=== PATIENT | female | born 1985 | race Caucasian/White ===

== ENCOUNTER 2018-09-23 15:51 | Inpatient (IN) | payer BC, OTHER ==
[~2018-09-23] VITALS: Ht 167.6 cm; Wt 106.0 kg
[2018-09-23] MEDS ORDERED: SODIUM CHLORIDE 0.9% 1,000 ML IV ONE ×2 (16:56→18:00)
[2018-09-23] MEDS ORDERED: SODIUM CHLORIDE FLUSH 10ML SYR IVF ONE (17:00)
--- NOTE | 2018-09-23 17:01 | NUR ---
LUNCH RN: PT PRESENTING FROM [place] FOR FURTHER EVAL OF POSSIBLE GALLSTONES. IV IN PLACE ON ARRIVAL. PAIN CONTROLLED AT THIS TIME. PT UP TO RESTROOM FOR URINE SAMPLE. ORDERS RECEIVED. AWAITING LABS AND RECHECK AT THIS TIME. FAMILY AT BEDSIDE. CALL LIGHT WITHIN REACH.
--- NOTE | 2018-09-23 17:10 | NUR ---
URINE COLLECTED/SENT TO LAB. PT COMFORTABLE AT THIS TIME, AWAITING LAB RESULTS.
[2018-09-23 17:16] LABS: BASOPHILS % (AUTO) 1 % (0-1); EOSINOPHILS # (AUTO) 0.17 x10^3/uL (0-0.4); EOSINOPHILS % (AUTO) 2 % (1-7); LYMPHOCYTES # (AUTO) 2.09 x10^3/uL (1-3.4); LYMPHOCYTES % (AUTO) 22 % (22-44); MD NO; MEAN CORPUSCULAR HEMOGLOBIN 27.8 pg (27.0-34.8); MEAN CORPUSCULAR HGB CONC 34.1 g/dL (32.4-35.8); MEAN CORPUSCULAR VOLUME 81.7 fL (80-100); MEAN PLATELET VOLUME 8.5 fL (7.4-10.4); MONOCYTES # (AUTO) 0.34 x10^3/uL (0.2-0.8); MONOCYTES % (AUTO) 4 % (2-9); NEUTROPHILS % (AUTO) 71 % (42-75); PLATELET COUNT 580 x10^3/uL (130-400); RED BLOOD COUNT 5.11 x10^6/uL (3.82-5.3); RED CELL DISTRIBUTION WIDTH 14.9 % (9.6-15.2)
[2018-09-23 17:26] LABS: HCG UR SG 1.021 (1.003-1.030)
[2018-09-23 17:27] LABS: ALANINE AMINOTRANSFERASE 42 U/L (12-78); ALBUMIN 3.5 g/dL (3.4-5.0); ANION GAP 5 mmol/L (5-15); CALCIUM 8.8 mg/dL (8.5-10.1); CHLORIDE 111 mmol/L (98-107); CREATININE 0.71 mg/dL (0.55-1.02)
[2018-09-23 17:28] LABS: MICROSCOPIC INDICATED
[2018-09-23 17:29] LABS: ALKALINE PHOSPHATASE 58 U/L (45-117); BILIRUBIN,TOTAL 0.6 mg/dL (0.2-1.0); TOTAL PROTEIN 6.8 g/dL (6.4-8.2)
[2018-09-23 17:38] LABS: CULTURE INDICATED? NO
--- NOTE | 2018-09-23 17:56 | NUR ---
RESULTS BACK, PT FOR RECHECK.
[2018-09-23] MEDS ORDERED: SODIUM CHLORIDE FLUSH 10ML SYR IVF PRN (18:00)
[2018-09-23] MEDS ORDERED: BUPIVACAINE/PF-EPI 0.5% 1:200K ONE (18:05)
--- NOTE | 2018-09-23 18:07 | NUR ---
PT TO OR, NO CALL FOR REPORT.
[2018-09-23] MEDS ORDERED: FENTANYL PF 250 MCG/5ML ONE (18:31)
[2018-09-23] MEDS ORDERED: MIDAZOLAM 1 MG/ML, 2ML ONE (18:31)
[2018-09-23] MEDS ORDERED: LIDOCAINE 2%, 6 ML JEL.PF.APP MM ONE (18:33)
[2018-09-23] MEDS ORDERED: BUPIVACAINE/PF-EPI 0.5% 1:200K INFIL ONE (19:07)
[2018-09-23] MEDS ORDERED: GLYCOPYRROLATE 0.2MG/1ML, 5ML ONE (19:08)
[2018-09-23] MEDS ORDERED: DEXAMETHASONE 4 MG/ML, 1ML ONE (19:08)
[2018-09-23] MEDS ORDERED: PROPOFOL 10 MG/ML, 20ML ONE (19:08)
[2018-09-23] MEDS ORDERED: ONDANSETRON 2MG/ML, 2ML ONE (19:08)
[2018-09-23] MEDS ORDERED: SUCCINYLCHOLINE 20 MG/ML, 10ML ONE (19:08)
[2018-09-23] MEDS ORDERED: NEOSTIGMINE 1 MG/ML, 10ML ONE (19:08)
[2018-09-23] MEDS ORDERED: ROCURONIUM 10MG/ML,5ML ONE (19:08)
[2018-09-23] MEDS ORDERED: CEFOTETAN PMX 2GM/50ML 50 ML ONE (19:08)
[2018-09-23] MEDS ORDERED: SCOPOLAMINE PATCH, 1.5MG PATCH.TD72 TD PRN (19:30)
[2018-09-23] MEDS ORDERED: ACETAMINOPHEN 325 MG TABLET PO PRN (19:30)
[2018-09-23] MEDS ORDERED: MIDAZOLAM 1 MG/ML, 2ML IV PRN (19:30)
[2018-09-23] MEDS ORDERED: DIAZEPAM 5 MG/ML, 2ML IVPush PRN (19:30)
[2018-09-23] MEDS ORDERED: ALBUTEROL/IPRATROPIUM 2.5MG/0.5MG, 3 ML NPPB PRN (19:30)
[2018-09-23] MEDS ORDERED: LABETALOL 5MG/ML, 20ML IV PRN (19:30)
[2018-09-23] MEDS ORDERED: OXYcodone 5 MG/5 ML ORAL.SOL UDC PO PRN (19:30)
[2018-09-23] MEDS ORDERED: PROMETHAZINE 25 MG/ML, 1ML IV PRN (19:30)
[2018-09-23] MEDS ORDERED: ONDANSETRON 2MG/ML, 2ML IV PRN (19:30)
[2018-09-23] MEDS ORDERED: hydrALAzine 20 MG/ML, 1ML IV PRN (19:30)
[2018-09-23] MEDS ORDERED: OXYcodone 5 MG/5 ML ORAL.SOL UDC ONE ×2 (19:40→19:46)
[2018-09-23] MEDS ORDERED: FENTANYL PF 100 MCG/2ML ONE ×2 (19:46→20:07)
[2018-09-23] MEDS: FENTANYL PF 100 MCG/2ML IV PRN ×4 (19:49→20:17)
[2018-09-23] MEDS ORDERED: HYDROmorphone 1 MG/ML, 1ML ONE ×2 (19:51→20:01)
[2018-09-23] MEDS: HYDROmorphone 2 MG/ML, 1ML IVPush PRN ×4 (19:54→20:12)
[2018-09-23] MEDS ORDERED: MEPERIDINE/PF 25MG/ML,1ML ONE (20:18)
[2018-09-23] MEDS: MEPERIDINE/PF 25MG/0.5ML IVPush PRN ×2 (20:20→20:40)
[2018-09-23 21:30] VITALS: BP 117/77
[2018-09-23] MEDS ORDERED: D5%-0.45NACL+KCL 20MEQ 1,000 ML IV SCH (22:30)
[2018-09-23] MEDS ORDERED: MORPHINE SULFATE 4 MG/ML, 1ML IV PRN (22:30)
[2018-09-23] MEDS: OXYcodone/APAP 5/325MG TABLET PO PRN (23:19)
[2018-09-23] MEDS: ONDANSETRON 2MG/ML, 2ML IV PRN (23:48)
[2018-09-24 00:11] VITALS: BP 125/81
[2018-09-24 04:02] VITALS: BP 117/72
[2018-09-24] MEDS: OXYcodone/APAP 5/325MG TABLET PO PRN ×2 (06:23→10:48)
[2018-09-24] MEDS: ONDANSETRON 2MG/ML, 2ML IV PRN ×2 (06:23→10:48)
[2018-09-24 09:18] VITALS: BP 116/65
[2018-09-24] MEDS ORDERED: OXYC-302 PO (10:26)
== END 2018-09-24 12:00 | disposition home or self-care (01) | DRG 419 ==
LOC: ED 16:26 → EDIP 18:00 → 4NOR 21:31 → DCLOUNGE 09-24 11:50
PROVIDERS: ADMIT Surgery; ATTEND Surgery
PROC: 0FT44ZZ Resection of Gallbladder, Percutaneous Endoscopic Approach (ICD-10-PCS; principal; 2018-09-23 18:15)
DX: K80.00 Calculus of gallbladder with acute cholecystitis without obstruction (principal); E66.9 Obesity, unspecified; R16.1 Splenomegaly, not elsewhere classified; R79.89 Other specified abnormal findings of blood chemistry; Z68.37 Body mass index [BMI] 37.0-37.9, adult
CPT/HCPCS: 36415; J3490; 80053; 81001; 81025; 83690; 85025; 88304; G0378; J1100; J1170; J2175; J2250; J2405; J2704; J2710; J3010; J0330; J3480